=== PATIENT | male | born 1990 | race African-American/Black ===

== ENCOUNTER 2020-03-24 04:22 | Emergency (ER) | payer SELFPAY | END 2020-03-24 06:45 | disposition left against medical advice (07) | LOC: EMS 04:22 | DX: M79.671 Pain in right foot (principal); Z53.21 Procedure and treatment not carried out due to patient leaving prior to being seen by health care provider ==

== ENCOUNTER 2021-08-24 11:51 | Inpatient (IN) | payer MEDICAID ==
[~2021-08-24] VITALS: Ht 180.3 cm; Wt 77.5 kg
[2021-08-24] MEDS ORDERED: LORazepam 2 MG/ML VIAL IM ONE (12:30)
[2021-08-24] MEDS ORDERED: HALOPERIDOL LACTATE 5 MG/ML VIAL IM ONE (12:30)
[2021-08-24] MEDS ORDERED: DiphenhydrAMINE HCL 50 MG/ML VIAL IM ONE (12:30)
[2021-08-24 13:26] LABS: BASOPHILS % (AUTO) 0.5 % (0.0-2.0); EOSINOPHILS % (AUTO) 0.8 % (1.0-6.0); HEMATOCRIT 45.3 % (41-53); LYMPHOCYTES # (AUTO) 2.1 K/uL (1.0-4.8); LYMPHOCYTES % (AUTO) 31.7 % (22.0-44.0); MEAN CORPUSCULAR HEMOGLOBIN 30.6 pg (26.0-34.0); MEAN CORPUSCULAR HGB CONC 35.4 G/dL (31.0-37.0); MEAN CORPUSCULAR VOLUME 87 fL (80-100); MONOCYTES # (AUTO) 0.3 K/uL (0.1-1.0); MONOCYTES % (AUTO) 4.1 % (2.0-9.0); NEUTROPHILS # (AUTO) 4.2 K/uL (1.8-7.7); NEUTROPHILS % (AUTO) 62.9 % (40.0-70.0); PLATELET COUNT (AUTO) 279 K/uL (150-450); RED BLOOD CELL COUNT(AUTO) 5.24 MIL/uL (4.50-5.90); RED CELL DISTRIBUTION WIDTH 13.4 % (11.5-14.5)
[2021-08-24 13:49] LABS: ANION GAP 12 mmol/L (8-16); CALCIUM, TOTAL 9.1 mg/dL (8.8-10.5); CARBON DIOXIDE 25 mmol/L (22-29); CHLORIDE 102 mmol/L (98-107); CREATININE 0.77 mg/dL (0.60-1.30); GLOMERULAR FILTR. RATE CALC > 60 mL/min (>60); GLUCOSE,RANDOM 74 mg/dL (70-110); POTASSIUM 3.7 mmol/L (3.5-5.1); SODIUM SERUM 139 mmol/L (136-145); UREA NITROGEN, BLOOD 11 mg/dL (7-18)
[2021-08-24 13:56] LABS: ALANINE AMINOTRANSFERASE 167 U/L (12-78); ALBUMIN 4.1 g/dL (3.4-5.0); ALKALINE PHOSPHATASE 83 U/L (46-116); ASPARTATE AMINOTRANSFERASE 58 U/L (15-37); BILIRUBIN,TOTAL 0.7 mg/dL (0.1-1.0); CHOL/HDL RATIO 1.9 (4.2-7.3); CHOLESTEROL 162 mg/dL (131-200); HDL CHOLESTEROL 86 mg/dL (40-60); LDL CHOL (CALC.) 64 mg/dL (0-130); TOTAL PROTEIN, SERUM 7.8 g/dL (6.4-8.2); TRIGLYCERIDES 62 mg/dL (15-150)
[2021-08-24] MEDS ORDERED: ZOLPIDEM TARTRATE 10 MG TABLET PO PRN (17:15)
[2021-08-24] MEDS ORDERED: HALOPERIDOL 5 MG TABLET PO PRN (17:15)
[2021-08-24 23:27] LABS: COVID AG,FIA SOURCE NASOPHARYNGEAL
[2021-08-25 10:36] VITALS: BP 140/72
[2021-08-25 17:09] VITALS: BP 113/70
[2021-08-26 05:47] VITALS: BP 107/71
[2021-08-26 08:38] VITALS: BP 122/68
[2021-08-26] MEDS: RisperiDONE 1 MG TABLET PO SCH ×2 (10:51→20:21)
[2021-08-26] MEDS: LORazepam 2 MG TABLET PO PRN (10:55)
[2021-08-26] MEDS ORDERED: ALBUTEROL SULFATE HFA 90 MCG/PUFF 8 GM INHALER IH PRN (13:45)
[2021-08-26] MEDS ORDERED: ONDANSETRON HCL 4 MG TABLET PO PRN (13:45)
[2021-08-26] MEDS ORDERED: DOCUSATE SODIUM 100 MG CAPSULE PO PRN (13:45)
[2021-08-26] MEDS ORDERED: NICOTINE 14 MG/24 HOUR PATCH TD PRN (13:45)
[2021-08-26] MEDS ORDERED: CloNIDine HCL 0.1 MG TABLET PO PRN (13:45)
[2021-08-26] MEDS ORDERED: LOPERAMIDE HCL 2 MG CAPSULE PO PRN (13:45)
[2021-08-26] MEDS ORDERED: GuaiFENesin/D-METHORPHAN [SUGAR-FREE] 200-20MG/10 ML SYRUP UDCUP PO PRN (13:45)
[2021-08-26] MEDS ORDERED: PETROLATUM,WHITE 28 GM JELLY TP PRN (13:45)
[2021-08-26] MEDS ORDERED: ACETAMINOPHEN 325 MG TABLET PO PRN (13:45)
[2021-08-26] MEDS ORDERED: IBUPROFEN 400 MG TABLET PO PRN (13:45)
[2021-08-26] MEDS ORDERED: MAGNESIUM HYDROXIDE SUSPENSION 30 ML UDCUP PO PRN (13:45)
[2021-08-26] MEDS ORDERED: MAG HYDROX/AL HYDROX/SIMETH ES 30 ML SUSPENSION UDCUP PO PRN (13:45)
[2021-08-26 17:13] VITALS: BP 114/62
[2021-08-27 06:21] VITALS: BP 119/78
[2021-08-27 08:06] VITALS: BP 128/76
[2021-08-27] MEDS: RisperiDONE 1 MG TABLET PO SCH (08:27)
[2021-08-27] MEDS: LORazepam 2 MG TABLET PO PRN (08:27)
[2021-08-27 16:47] VITALS: BP 131/88
== END 2021-08-27 18:34 | disposition home or self-care (01) | DRG 750 ==
LOC: EMS 11:53 → B3A 08-25 08:36
PROVIDERS: ADMIT Psychiatry & Neurology Psychiatry; ATTEND Psychiatry & Neurology Psychiatry
DX: F25.0 Schizoaffective disorder, bipolar type (principal); R45.851 Suicidal ideations; G40.909 Epilepsy, unspecified, not intractable, without status epilepticus; E03.9 Hypothyroidism, unspecified; F17.210 Nicotine dependence, cigarettes, uncomplicated; Z20.822 Contact with and (suspected) exposure to COVID-19; I10 Essential (primary) hypertension; K59.00 Constipation, unspecified; Z65.3 Problems related to other legal circumstances
CPT/HCPCS: 70450; 72125; 80053; 80061; 85025; 99285; G0480; J1200; J1630; J2060